=== PATIENT | female | born 1975 | race Caucasian/White ===

== ENCOUNTER 2017-03-07 00:05 | Emergency (ER) | payer OTHER ==
[~2017-03-07] VITALS: Ht 167.6 cm; Wt 99.8 kg
[2017-03-07 00:15] VITALS: BP 150/80
--- NOTE | 2017-03-07 01:19 | NUR ---
Patient to bed 08.
[2017-03-07] MEDS: ONDANSETRON 4 MG TAB PO ONE (02:05)
--- NOTE | 2017-03-07 02:11 | NUR ---
41Y F BIB MOM C/O OF PAIN TO LUMBAR AREA W/ NAUSEA. NO VOMITTING NOTED. 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 V/S WNL.
[2017-03-07] MEDS: MORPHINE SULFATE 10 MG/ML SYR IM ONE (02:18)
[2017-03-07 03:32] VITALS: BP 139/76
--- NOTE | 2017-03-07 03:32 | NUR ---
DISCHARGE NOTE ONLY: Patient discharged with v/s stable BY ER MD DR WADSWORTH. Written and verbal after care instructions given and explained BY ER MD DR WADSWORTH. Patient verbalized understanding. Ambulatory with steady gait. All questions addressed prior to discharge. Advised to follow up with PMD BY ER MD DR WADSWORTH.
== END 2017-03-07 03:32 | disposition home or self-care (01) ==
LOC: MED 00:05
DX: M54.5 Low back pain (principal); G89.29 Other chronic pain
CPT/HCPCS: 96372; 99283; J2270; Q0162

== ENCOUNTER 2017-03-08 19:29 | Emergency (ER) | payer OTHER ==
[~2017-03-08] VITALS: Ht 167.6 cm; Wt 99.8 kg
[2017-03-08 19:38] VITALS: BP 133/89
--- NOTE | 2017-03-08 21:38 | NUR ---
PT TAKEN TO BED 5
--- NOTE | 2017-03-08 21:39 | NUR ---
41 Y/O F W/C/O CHRONIC R LOWER BACK PAIN GETTING WORSE X 3 DAYS. DENIES ANY FEVER, N/V. NO S/S OF DISTRESS NOTED AT THE MOMENT.
--- NOTE | 2017-03-08 21:42 | NUR ---
Dr. Sahu evaluating patient at bedside.
[2017-03-08] MEDS ORDERED: MORPHINE SULFATE 10 MG/ML SYR IVP ONE (21:50)
[2017-03-08] MEDS ORDERED: ONDANSETRON 4 MG/2 ML VIAL IVP ONE (21:50)
[2017-03-09 00:36] VITALS: BP 122/80
--- NOTE | 2017-03-09 00:36 | NUR ---
Patient discharged with v/s stable. Written and verbal after care instructions given and explained. Patient verbalized understanding. Ambulatory with steady gait. All questions addressed prior to discharge. Advised to follow up with PMD NEXT WEEK.
== END 2017-03-09 00:36 | disposition home or self-care (01) ==
LOC: MED 19:29
DX: M54.5 Low back pain (principal)
CPT/HCPCS: 96374; 96375; 99284; J2270; J2405